=== PATIENT | female | born 1995 | race Caucasian/White ===

== ENCOUNTER 2023-06-23 09:42 | Day surgery (SDC) | payer OTHER ==
[2023-06-22] MEDS: TRANEXAMIC ACID 100 MG/ML 10ML VIAL IV ONE (12:45)
[~2023-06-23] VITALS: Ht 170.2 cm; Wt 60.7 kg
[2023-06-23] MEDS ORDERED: LR 1,000 ML IV SCH ×3 (11:10→17:35)
[2023-06-23] MEDS: dexAMETHasone 10MG/1ML VIAL PRES.FREE PN ONE (11:40)
[2023-06-23] MEDS: LIDOCAINE 1% SDV 5ML VIAL PN ONE (11:40)
[2023-06-23] MEDS: EPINEPHrine INJ 1 MG/ML 1ML AMP PN ONE (11:40)
[2023-06-23] MEDS: ROPIvacaine 0.5% 30ML VIAL PN ONE (11:40)
[2023-06-23] MEDS ORDERED: fentaNYL 100 MCG/2 ML INJECTION As Ordered ONE (11:41)
[2023-06-23] MEDS ORDERED: propofoL 200 MG/20 ML VIAL As Ordered ONE (11:41)
[2023-06-23] MEDS ORDERED: MIDAZOLAM INJ 2MG/2ML VIAL As Ordered ONE (11:41)
[2023-06-23] MEDS: MIDAZOLAM INJ 2MG/2ML VIAL IV PRN (11:42)
[2023-06-23] MEDS ORDERED: ONDANSETRON 4MG 2ML VIAL As Ordered ONE (11:42)
[2023-06-23] MEDS ORDERED: LIDOCAINE 2% 100MG/5ML SDV (FOR ANES.) As Ordered ONE (11:42)
[2023-06-23] MEDS: fentaNYL 100 MCG/2 ML INJECTION IV PRN (11:42)
[2023-06-23] MEDS: ceFAZolin SOD 2 GM in IV 1 EA IV ONE (12:44)
[2023-06-23] MEDS: TRANEXAMIC ACID 100 MG/ML 10ML VIAL As Ordered ONE (12:45)
[2023-06-23] MEDS ORDERED: ACETAMINOPHEN 1000MG 100ML IV BAG As Ordered ONE (14:01)
[2023-06-23] MEDS: EPINEPHrine 1MG/ML INJ 30ML MD-VIAL As Ordered ONE (15:19)
[2023-06-23] MEDS ORDERED: fentaNYL 100 MCG/2 ML INJECTION IV PRN ×2 (17:05→17:35)
[2023-06-23] MEDS ORDERED: oxyCODONE 5MG TAB PO PRN ×2 (17:05→17:35)
[2023-06-23] MEDS ORDERED: ONDANSETRON 4MG 2ML VIAL IV PRN (17:35)
[2023-06-23] MEDS ORDERED: HYDROMORPHONE HCL 0.5 MG/ 0.5 ML SYRINGE IV PRN (17:35)
[2023-06-23] MEDS: HYDROMORPHONE HCL 0.5 MG/ 0.5 ML SYRINGE IV PRN (17:40)
[2023-06-23] MEDS: ONDANSETRON 4MG 2ML VIAL IV PRN (17:55)
[2023-06-23] MEDS: METOCLOPRAMIDE INJ 10MG/2ML VIAL IV STA (17:58)
[2023-06-23 19:45] VITALS: BP 115/64; TEMP 98.4; O2SAT 99
== END 2023-06-23 20:11 | disposition home or self-care (01) ==
LOC: M SDC 09:42
PROVIDERS: ATTEND Orthopaedic Surgery
DX: S83.511A Sprain of anterior cruciate ligament of right knee, initial encounter (principal); S83.281A Other tear of lateral meniscus, current injury, right knee, initial encounter; M22.41 Chondromalacia patellae, right knee; X50.0XXA Overexertion from strenuous movement or load, initial encounter; Y93.68 Activity, volleyball (beach) (court); Y92.9 Unspecified place or not applicable; Z79.82 Long term (current) use of aspirin; Z79.899 Other long term (current) drug therapy
CPT/HCPCS: 29882; 29888; 73560; 81025; C1713; C1762; J0131; J0171; J0690; J1100; J1170; J2250; J2405; J2765; J3010

== ENCOUNTER → 2024-11-12 | Outpatient (CLI) | payer OTHER ==
[2024-11-12 18:21] LABS: PLATELET COUNT, AUTOMATED 264 10^3/uL (150-450)
[2024-11-12 18:43] LABS: HIV 1&2 SCREEN NEGATIVE (NEGATIVE)
[2024-11-12 18:48] LABS: HEPATITIS C VIRUS ABY INDEX < 0.02 INDEX (<0.8)
[2024-11-12 19:25] LABS: Trichomonas vaginalis (AMP) NOT DETECTED (NEGATIVE)
[2024-11-12 19:49] LABS: GC DNA AMPLIFICATION NEGATIVE (NEGATIVE)
== END ==
LOC: M PLALAB 14:28
PROVIDERS: ATTEND Advanced Practice Midwife
DX: Z34.01 Encounter for supervision of normal first pregnancy, first trimester (principal)

== ENCOUNTER → 2024-11-28 | Outpatient (CLI) | payer OTHER | LOC: M PLALAB 10:45 | PROVIDERS: ATTEND Nurse Practitioner Family | DX: Z34.80 Encounter for supervision of other normal pregnancy, unspecified trimester (principal) ==

== ENCOUNTER → 2025-01-17 | Outpatient (CLI) | payer OTHER | LOC: M WHC 15:12 | PROVIDERS: ATTEND Nurse Practitioner Family | DX: O28.3 Abnormal ultrasonic finding on antenatal screening of mother (principal); Z3A.21 21 weeks gestation of pregnancy ==

== ENCOUNTER → 2025-02-26 | Outpatient (CLI) | payer OTHER ==
[2025-02-26 11:49] LABS: PLATELET COUNT, AUTOMATED 216 10^3/uL (150-450)
[2025-02-26 12:12] LABS: GLUCOSE CHALLENGE TEST 1 HOUR 71 MG/DL (LESS THAN 140)
[2025-02-26 12:47] LABS: HIV 1&2 SCREEN NEGATIVE (NEGATIVE)
[2025-02-26 12:55] LABS: HEPATITIS C VIRUS ABY INDEX < 0.02 INDEX (<0.8)
[2025-02-26 13:08] LABS: Trichomonas vaginalis (AMP) NOT DETECTED (NEGATIVE)
[2025-02-26 13:32] LABS: GC DNA AMPLIFICATION NEGATIVE (NEGATIVE)
== END ==
LOC: M PLALAB 08:16
PROVIDERS: ATTEND Specialist
DX: Z34.02 Encounter for supervision of normal first pregnancy, second trimester (principal)